=== PATIENT | female | born 1955 | race Caucasian/White ===

== ENCOUNTER → 2019-06-13 08:36 | Outpatient (CLI) | payer MEDICAID, SELFPAY ==
--- NOTE | 2019-06-13 08:41 | US_ITS ---
STUDY: ABDOMINAL ULTRASOUND - RIGHT UPPER QUADRANT REASON FOR VISIT: Female, 64 years old ELEVATED LIVER ENZYMES HX LIVER LACERATION 1988 TECHNIQUE: Ultrasound evaluation of the right upper quadrant was performed with real-time and static marcus-scale imaging. TECHNICAL QUALITY: Adequate. COMPARISON: None. FINDINGS: Liver: The liver measures 16.2 cm. There is increased echogenicity consistent with fatty infiltration. The bile ducts are within normal limits. There is hepatic color flow. The direction of portal flow is hepatopetal. There is no demonstrated mass lesion. Gallbladder: Normal distended gallbladder. The gallbladder wall measures 2.2 mm. There is a negative sonographic Rodriguez''s sign. There is no pericholecystic fluid. There is evidence of a solitary nonshadowing stone along the dependent portion of the gallbladder. Common Bile Duct (C.B.D.): The common bile duct measures 2.3 mm. Pancreas: Normal size of the head, body and tail of the pancreas. There is normal echogenicity of the pancreas. There is no demonstrated pancreatic mass or cyst. Right Kidney: Normal size of the right kidney. The right kidney measures 10.5 cm x 5.1 cm x 4.5 cm. Normal renal cortex. The right cortex measures 1.2 cm. There is no demonstrated renal mass or cyst. There is no right hydronephrosis. US/Liver IMPRESSION: Fatty infiltration of the liver. Solitary nonshadowing stone in the gallbladder. Electronically Signed: Rogerio Rueda, at 15:48 EDT , Service support ,
== END ==
DX: R94.5 Abnormal results of liver function studies (principal)
CPT/HCPCS: 76705

== ENCOUNTER → 2020-06-05 17:13 | Outpatient (CLI) | payer MEDICAID, SELFPAY ==
[2020-06-05 17:43] LABS: Absolute Lymphocyte Count 1.91 X10^3/uL (0.83-4.51); Absolute Neutrophil Count 5.3 X10^3/uL (2.0-7.7); Basophil# 0.07 X10^3/uL; Basophil% 0.9 % (0-1); Eosinophil# 0.12 X10^3/uL; Eosinophils% 1.5 % (0-5); Hematocrit 47.9 % (37-47); Hemoglobin 14.7 g/dL (12.0-15.0); Lymphocyte # 1.91 X10^3/ul (4.0); Lymphocyte % 24.1 % (19-41); Mean Corp Hgb Conc 30.7 g/dL (32-36); Mean Corpuscular Hgb 30.2 pg (27.0-32.0); Mean Corpuscular Volume 98.4 fL (81-99); Mean Platelet Vol. 10.2 fl (6.2-12.0); Monocyte# 0.53 X10^3/uL; Monocyte% 6.7 % (0-10); NRBC Flagged by Analyzer 0 % (0-5); Neutrophil # 5.29 X10^3/uL (2.7-7.7); Neutrophil % 66.5 % (47-70); Platelet Count 215 K/mm3 (150-450); RBC Distribution Width CV 13.1 % (11.6-14.6); RBC Distribution Width SD 48.1 fl (35.1-43.9); Red Blood Count 4.87 M/mm3 (4.2-5.4); White Blood Count 7.9 K/mm3 (4.4-11.0)
[2020-06-05 18:53] LABS: AST(SGOT) 19 U/L (15-37); Alanine Aminotransfer ALT/SGPT 31 U/L (13-56); Albumin, Serum 4.3 g/dL (3.2-5.0); Alkaline Phosphatase 107 U/L (45-117); Anion Gap 5 (5-15); BUN 13 mg/dL (7-18); BUN/Creat Ratio 17.1 RATIO (10-20); Calcium,Total 9.6 mg/dL (8.5-10.1); Chloride 103 mmol/L (98-107); Cholesterol 282 mg/dL (200); Creatinine, Serum 0.76 mg/dL (0.55-1.02); EST Glomerular Filtration Rate 82 mL/min (>60); Est Glom Filt Rate - Afr Amer 99 mL/min (>60); Globulin 4.5 g/dL (2.2-4.2); Glucose 83 mg/dL (74-106); High Density Lipoprotein 74 mg/dL; Potassium 3.5 mmol/L (3.5-5.1); Protein, Total 8.8 g/dL (6.4-8.2); Sodium Level 136 mmol/L (136-145); T4 Free Direct 1.33 ng/dL (0.76-1.46); Thyroid Stim Hormone (TSH) 0.94 uIU/mL (0.358-3.74); Triglycerides 81 mg/dL; Very Low Density Lipoprotein 16 mg/dL (5-40)
== END ==
PROVIDERS: Referring Provider Nurse Practitioner Adult Health; Visit Provider Nurse Practitioner Adult Health
DX: E03.9 Hypothyroidism, unspecified (principal); G47.00 Insomnia, unspecified
CPT/HCPCS: 36415; 80053; 80061; 84439; 84443; 85025

== ENCOUNTER 2021-07-09 11:22 | Outpatient (CLI) | payer MEDICARE, MEDICAID, SELFPAY ==
[2021-07-09 14:31] LABS: Cholesterol 226 mg/dL (200); High Density Lipoprotein 56 mg/dL; Thyroid Stim Hormone (TSH) 1.44 uIU/mL (0.358-3.74); Triglycerides 83 mg/dL; Very Low Density Lipoprotein 17 mg/dL (5-40)
== END 2021-07-09 23:59 | disposition home or self-care (01) ==
PROVIDERS: Referring Provider Family Medicine; Visit Provider Family Medicine
DX: I10 Essential (primary) hypertension (principal); E78.2 Mixed hyperlipidemia; E03.9 Hypothyroidism, unspecified
CPT/HCPCS: 36415; 80061; 84443

== ENCOUNTER 2024-11-04 11:59 | Emergency (ER) | payer MEDICARE, SELFPAY ==
[2024-11-04] VITALS (7 sets, daily range): BP systolic 161–186; BP diastolic 101–138; PULSE 84–130; RESP 17–24; TEMP 35.5–36.7; O2SAT 96–100; BMI 26.4
[2024-11-04] MEDS: Lorazepam 2 MG/ML WCH Syringe IV (12:01)
--- NOTE | 2024-11-04 12:06 | EKG12_ITS ---
Test Reason : SEIZURE/STROKE TEAM Blood Pressure : */* mmHG Vent. Rate : 106 BPM Atrial Rate : 106 BPM P-R Int : 178 ms QRS Dur : 74 ms QT Int : 344 ms P-R-T Axes : 53 22 27 degrees QTcB Int : 456 ms Sinus tachycardia Possible Lateral infarct , age undetermined Abnormal ECG Confirmed by ERIC WATSON MD ([id number]), associate entertainment editor LINK CABALLERO ([id number]) on 11/06/2024 7:34:29 AM Referred By: Confirmed By: ERIC WATSON MD
--- NOTE | 2024-11-04 12:06 | EKG12_ITS ---
Test Reason : SEIZURE/STROKE TEAM Blood Pressure : */* mmHG Vent. Rate : 106 BPM Atrial Rate : 106 BPM P-R Int : 178 ms QRS Dur : 74 ms QT Int : 344 ms P-R-T Axes : 53 22 27 degrees QTcB Int : 456 ms Sinus tachycardia Possible Lateral infarct , age undetermined Abnormal ECG Confirmed by ERIC WATSON MD ([id number]), film and video editor LINK CABALLERO ([id number]) on 11/06/2024 7:34:29 AM Referred By: Confirmed By: ERIC WATSON MD
--- NOTE | 2024-11-04 12:07 | RAD_ITS ---
PROCEDURE: CHEST 1 VIEW 11/04/2024 REASON FOR EXAM: NEURO DEFICIT, ACUTE, STROKE SUSPECTED TECHNIQUE: Frontal view of the chest. COMPARISON: None FINDINGS: Hardware: EKG leads are seen. Heart: The heart size is normal. Lungs: The lungs are clear. Bones: The bones are unremarkable. RAD/Chest 1 View IMPRESSION: No acute abnormality. Reading Location: [id number]
--- NOTE | 2024-11-04 12:07 | CT_ITS ---
PROCEDURE: STROKE CTA HEAD AND NECK W/CON 11/04/2024 REASON FOR EXAM: NEURO DEFICIT, ACUTE, STROKE SUSPECTED TECHNIQUE: STROKE CTA HEAD AND NECK W/CON Multiplanar Sagittal and Coronal images were obtained. 3D post processing was performed CONTRAST: Isovue 370 VOLUME: 100 mL, 40 cc saline One or more dose reduction techniques were used (e.g., Automated exposure control, adjustment of the mA and/or kV according to patient size, use of iterative reconstruction technique). RADIATION DOSE SUMMARY: CTDlvol: 37 mGy DLP: 688 mGycm COMPARISON: Head CT of the same day FINDINGS: Aortic Arch: Normal size and branching pattern. Mild atherosclerotic plaque. Brachiocephalic and Subclavians: Unremarkable RIGHT Carotid: Right CCA: Unremarkable. Right ICA: Mild mural plaque at the bifurcation Maximum stenosis (NASCET): 0 % Right ECA: Unremarkable. LEFT Carotid: Left CCA: Unremarkable. Left ICA: Minimal mural plaque posterolaterally at the bifurcation. Maximum stenosis (NASCET): 0 % Left ECA: Unremarkable. Vertebrals: Codominant. Arise from the subclavians. Both vertebrals form the basilar. However, they are rather tortuous in the lower neck. RIGHT Vertebral: Unremarkable. LEFT Vertebral: Unremarkable. Anatomy: Posterior communicating arteries are present bilaterally. Aneurysm or avm: No intracranial aneurysms or large vascular malformations are identified. Anterior cerebral arteries: Unremarkable. Middle cerebral arteries: Unremarkable. Basilar artery: Unremarkable. Posterior cerebral arteries: Unremarkable. Other major branches of the posterior circulation: Unremarkable. Major venous structures: Unremarkable. Other findings: Neck: No lymphadenopathy. Lungs: Lung apices are clear. Bones: Bones are unremarkable. CT/STROKE CTA Head AND Neck W/Con IMPRESSION: 1. No large vessel occlusion seen. 2. No aneurysm or stenosis seen. Very mild atherosclerotic change at the chavarria tid bifurcations. No flow-limiting stenosis seen. Reading Location: [id number]
--- NOTE | 2024-11-04 12:07 | RAD_ITS ---
PROCEDURE: CHEST 1 VIEW 11/04/2024 REASON FOR EXAM: NEURO DEFICIT, ACUTE, STROKE SUSPECTED TECHNIQUE: Frontal view of the chest. COMPARISON: None FINDINGS: Hardware: EKG leads are seen. Heart: The heart size is normal. Lungs: The lungs are clear. Bones: The bones are unremarkable. RAD/Chest 1 View IMPRESSION: No acute abnormality. Reading Location: [id number]
--- NOTE | 2024-11-04 12:12 | CT_ITS ---
PROCEDURE: STROKE BRAIN/HEAD WITHOUT CONT 11/04/2024 REASON FOR EXAM: NEURO DEFICIT, ACUTE, STROKE SUSPECTED TECHNIQUE: STROKE BRAIN/HEAD WITHOUT CONT Coronal and Sagittal reconstruction series were provided. One or more dose reduction techniques were used (e.g., Automated exposure control, adjustment of the mA and/or kV according to patient size, use of iterative reconstruction technique. RADIATION DOSE SUMMARY: CTDlvol: 45 mGy DLP: 815 mGycm COMPARISON: None FINDINGS: Brain: There is no evidence of hemorrhage, acute ischemia or mass. No extra- axial fluid collection, midline shift or mass effect. Minimal low signal in the periventricular white matter CSF Spaces: Mild generalized cerebral atrophy Sinuses/Mastoids: Clear Bones: No fracture CT/STROKE Brain/Head without Cont IMPRESSION: 1. No evidence of acute ischemia. 2. Mild changes of chronic microvascular ischemia volume loss. The findings and impression of the report were called directly to Dr. Clyde romero at 12:26 PM. Reading Location: [id number]
--- NOTE | 2024-11-04 12:12 | CT_ITS ---
PROCEDURE: STROKE BRAIN/HEAD WITHOUT CONT 11/04/2024 REASON FOR EXAM: NEURO DEFICIT, ACUTE, STROKE SUSPECTED TECHNIQUE: STROKE BRAIN/HEAD WITHOUT CONT Coronal and Sagittal reconstruction series were provided. One or more dose reduction techniques were used (e.g., Automated exposure control, adjustment of the mA and/or kV according to patient size, use of iterative reconstruction technique. RADIATION DOSE SUMMARY: CTDlvol: 45 mGy DLP: 815 mGycm COMPARISON: None FINDINGS: Brain: There is no evidence of hemorrhage, acute ischemia or mass. No extra- axial fluid collection, midline shift or mass effect. Minimal low signal in the periventricular white matter CSF Spaces: Mild generalized cerebral atrophy Sinuses/Mastoids: Clear Bones: No fracture CT/STROKE Brain/Head without Cont IMPRESSION: 1. No evidence of acute ischemia. 2. Mild changes of chronic microvascular ischemia volume loss. The findings and impression of the report were called directly to Dr. Clyde romero at 12:26 PM. Reading Location: [id number]
[2024-11-04 12:21] LABS: Hematocrit 45.2 % (37-47); Hemoglobin 14.7 g/dL (12.0-15.0); Immature Granulocytes Count 0.090 X10^3/uL (0.0-0.0); Mean Corp Hgb Conc 32.5 g/dL (32-36); Mean Corpuscular Volume 103.0 fL (81-99); Mean Platelet Vol. 10.7 fl (6.2-12.0); NRBC Flagged by Analyzer 0 % (0-5); POSITIVE COUNT YES; Platelet Count 164 K/mm3 (150-450); RBC Distribution Width CV 14.7 % (11.6-14.6); RBC Distribution Width SD 57.0 fl (35.1-43.9); Red Blood Count 4.39 M/mm3 (4.2-5.4); White Blood Count 12.4 K/mm3 (4.4-11.0)
[2024-11-04 12:33] LABS: Differential Indicated SCAN CRITERIA MET
[2024-11-04 12:37] LABS: Prothrombin Time (Protime)PT. 12.8 SECONDS (11.7-14.9)
[2024-11-04 12:38] LABS: Partial Thromboplast Time 23.6 Seconds (24.1-36.2)
[2024-11-04] MEDS: levETIRAcetam IV 1,000 MG/100 ML BAG 400 MG IV ×2 (12:46→13:00)
[2024-11-04] MEDS: 0.9% Normal Saline (1000mL) 1,000 ML 999 ML IV (12:46)
[2024-11-04 12:58] LABS: AST(SGOT) 53 U/L (<=31); Alanine Aminotransfer ALT/SGPT 51 U/L (<=34); Albumin, Serum 4.6 g/dL (3.4-4.8); Alkaline Phosphatase 143 U/L (35-104); Anion Gap 22 (5-15); BUN 12 mg/dL (4-19); BUN/Creat Ratio 18.0 RATIO (10-20); Calcium,Total 9.3 mg/dL (7.6-11.0); Carbon Dioxide 19.5 mmol/L (21.0-32.0); Chloride 93 mmol/L (98-108); Estimated Creatinine Clearance 69.30 ml/min (50-250); Globulin 3.6 g/dL (2.2-4.2); Glucose 169 mg/dL (70-99); Magnesium 1.8 mg/dL (1.5-2.2); Potassium 3.8 mmol/L (3.3-5.1); Troponin T High Sensitivity < 6 ng/L (<=14)
[2024-11-04 13:14] LABS: Ammonia 29.9 umol/L (11-51)
[2024-11-04 13:31] LABS: Base Excess 1 mmol/L (-2 to +2); PO2 66 mmHG (75-100); SITE R Brach; SO2 93 % (95-99)
[2024-11-04 13:42] LABS: Mucous, Urine 0 SEEN /hpf (<or=2+)
[2024-11-04 13:48] LABS: Color, Urine Yellow (Yellow); Glucose, Dipstick 100 mg/dl (Normal); Ketone-Dipstick 5 mg/dl (Negative); Leukocyte Esterase-Dipstick Negative /ul (Negative); Nitrite-Dipstick Negative (Negative); Occult Blood-Urine 25 /ul (Negative); Protein-Dipstick 100 mg/dl (Negative); Specific Gravity, Urine 1.015 (1.002-1.030); Urine Bilirubin Dipstick Negative (Negative)
[2024-11-04 13:59] LABS: Squamous Epithelial Cells - UA 0-5 SEEN /hpf (5-10)
[2024-11-04 14:01] LABS: Red Blood Cells-Urine 0-5 SEEN /hpf (0-5)
[2024-11-04] MEDS: 0.9% Normal Saline (1000mL) 1,000 ML 1000 ML IV (14:32)
--- NOTE | 2024-11-04 15:00 | EDS_ITS ---
HPI History of Present Illness Chief Complaint: Seizure Narrative Narrative: Chief complaint and HPI: Seizure. History taken by medical record and . 69-year-old female with past medical history of alcoholism presents for evaluation of seizure. states that the patient's last alcoholic beverage was yesterday evening. States she mostly drinks wine. States they were driving in the car and at 11:35 AM she began having confusion and right arm shaking. On presentation, patient is actively seizing. It quickly resolved however she had a recurrent seizure in which she resolved with 2 mg IV Ativan. However she has left sided gaze and right-sided neglect therefore she was made a stroke alert. Taken immediately to CT. not on blood thinners. states that the patient was at her normal state of health prior to the seizure. She has not been complaining of anything such as URI symptoms, fevers, shortness of breath, chest pain. On chart review, patient has a history of hypothyroidism and HTN. Review of systems: See HPI Medications: As listed on the chart Allergies: As listed on the chart PFSH: Per chart Vital signs: As listed on the chart. Reviewed. Physical exam: Gen: Originally unresponsive and seizing afterward alert and mumbling Head: Normocephalic, atraumatic Eyes: No sclera icterus, conjunctiva clear, PERRL, left-sided gaze will not cross midline, no nystagmus ENT: Dry mucous membranes, will not follow commands to assess for facial asym metry but no obvious asymmetry Neck: Trachea midline, No JVD, rotates her head to the left-will not rotate to the right CV: RRR, no murmurs, no peripheral edema Resp: Lungs CTA BL, no w/r/c GI: Abd soft, non-distended, does not appear tender, no r/r/g Musc: Moves her left upper and lower extremity-will occasionally follow commands with her left upper and left lower extremity such as wiggling toes and squeezing right hand, will not move or perform the commands on the right Skin: Warm, dry, intact Neuro: Alert, mumbling, Psych: Cooperative, appropriate mood and affect PFS PFS Allergy/AdvReac Type Severity Reaction Status Date / Time No Known Allergies Allergy Verified 11/04/24 12:01 Social History Smoking Status: Never smoker EXAM Physical Exam Const Vital Signs: 11/04/24 12:00 11/04/24 12:29 11/04/24 12:36 Temperature 96 F L Temperature Source Temporal Pulse Rate 130 H 109 H Respiratory Rate 20 H 22 H Blood Pressure 178/115 H Blood Pressure Mean 136 Pulse Ox 99 100 Oxygen Delivery Method Room Air Room Air Non-Rebreather Oxygen Flow Rate (L/min) 15 11/04/24 13:06 11/04/24 13:30 11/04/24 14:30 Temperature Temperature Source Pulse Rate 105 H 88 Respiratory Rate 24 H 17 Blood Pressure 186/103 H 161/138 H 179/101 H Blood Pressure Mean 130 145 127 Pulse Ox 98 96 Oxygen Delivery Method Room Air Room Air Oxygen Flow Rate (L/min) 11/04/24 15:07 11/04/24 15:08 Temperature 98.1 F Temperature Source Pulse Rate 84 86 Respiratory Rate 20 H 21 H Blood Pressure 181/108 H 181/108 H Blood Pressure Mean 132 132 Pulse Ox 97 97 Oxygen Delivery Method Oxygen Flow Rate (L/min) MDM MDM MDM Narrative Medical decision making narrative: 69-year-old female with past medical history of alcoholism, HTN, hypothyroidism presents for evaluation of seizure. Patient's last alcoholic drink was yesterday evening. States they were driving in the car and at 11:35 AM she began having confusion and right arm shaking. On presentation, patient was actively seizing. It quickly resolved however had recurrent seizure in which she resolved with 2 mg IV Ativan. Was alert afterwards. Mumbling. Intermittently following commands on the left. Left-sided gaze with right-sided weakness. Patient was made a stroke alert and taken immediately to CT. NIH was difficult to fully obtain given the limited cooperation from patient. Not on blood thinners. Differential diagnosis includes but is not limited to seizure, postictal phase, Harshad's paralysis, CVA, electrolyte abnormality, alcohol withdrawal, CHAITANYA, substance intoxication. Glucose 154. CT head with chronic microvascular ischemia but no acute pathology. Personally spoke with the radiologist over the phone. CTA head and neck without LVO or aneurysm. Very mild atherosclerotic changes at the carotid bifurcations. Patient was evaluated by teleneurology. While being examined by teleneurology, patient was found to be in partial seizure. On their exam she had left-sided nystagmus with left- sided arm shaking. Previous seizures were right arm shaking. Concern was for status epilepticus with partial complex seizure. Less likely CVA however cannot fully rule out. Patient not a TNK candidate due to current seizure and not clear picture. Patient was already receiving no 1 gram Keppra load. Re commendation was to add another 1 g Keppra for a 2 g load and another 2 mg IV Ativan and reassess in 15 minutes. If patient clinical picture did not change, plan would be for intubation with propofol to straight treat for status epilepticus. EKG was personally reviewed and interpreted by mo, ED physician, showed sinus tachycardia, rate 106. Nonspecific changes. CBC with mild leukocytosis of 12.4. No anemia. Platelets unremarkable. Coagulation panel unremarkable. Lactic acid 7.8. This is not uncommon for seizure as well as patient is probably likely chronically dehydrated from her alcoholism. Low suspicion for infection. VBG was ordered without acidosis. CMP consistent with dehydration without CHAITANYA. Patient has an anion gap of 22. Suspect this is likely secondary to alcoholic ketosis/dehydration. Another NS bolus ordered. Patient has mild transaminitis with an AST of 53 and an ALT of 51. Patient's abdominal exam is unremarkable. Troponin unremarkable x 2. Ammonia level unremarkable. TSH elevated at 5.490. Patient has history of hypothyroidism. Free T4 added. UA positive for ketones. Negative for infection. UA negative for UTI. Chest x-ray was personally viewed interpreted by mo, ED physician. No pneumonia, effusion, cardiomegaly, pneumothorax. Radiology in agreement. On reevaluation of the patient, she is alert. She is oriented to self only. She is answering questions periodically. She no longer has a left-sided gaze although she prefers to have her head turned to the left. She will cross midline. However she still has right upper and lower extremity weakness. She will wiggle her toes on the right and slightly squeeze my hand. Left patient's symptoms may be secondary to a Harshad's paralysis although cannot rule out CVA fully. Teleneurology was reconsulted to reevaluate the patient. Agree that the seizures have resolved. Suspect symptoms are likely secondary to seizure but agrees cannot fully rule out CVA without MRI of the brain. Discussion was had between teleneurology and patient's in about TNK. Everyone at re-agreed the patient is not a TNK candidate. Recommend patient have continuous EEG and neurology evaluation. We do not have that here at this hospital. Recommended ED to ED transfer. confirmed understanding. Transfer line contacted and patient accepted ED to ED. Plan is for repeat lactic acid after 2 L of fluid. Free T4 still pending. Alcohol level pending. She has remained hypertensive here in the emergency department. IV labetalol ordered Which patient received just prior to transfer. She was on seizure and CIWA precautions. Impression: 1. Seizure 2. Right-sided weakness-Harshad's paralysis versus CVA 3. Lactic acidosis, multifactorial including history of alcoholism, dehydrat ion, seizure activity 4. Hypothyroidism Lab Data Labs: Laboratory Results - last 24 hr 11/04/24 11/04/24 11/04/24 12:10 12:15 12:24 WBC 12.4 H RBC 4.39 Hgb 14.7 Hct 45.2 MCV 103.0 H MCH 33.5 H MCHC 32.5 RDW Std Deviation 57.0 H RDW Coeff of Soheila 14.7 H Plt Count 164 MPV 10.7 Immature Gran % (Auto) 0.700 Neut % (Auto) 69.7 Lymph % (Auto) 21.7 Thayer % (Auto) 6.6 Eos % (Auto) 0.3 Baso % (Auto) 1.0 Absolute Neuts (auto) 8.7 H Absolute Lymphs (auto) 2.70 Nucleated RBC % 0 Platelet Estimate ADEQUATE PT 12.8 INR 1.0 APTT 23.6 L Sodium 134 Potassium 3.8 Chloride 93 L Carbon Dioxide 19.5 L Anion Gap 22 H BUN 12 Creatinine 0.68 L Estim Creat Clear Calc 69.30 Est GFR (MDRD) Non-Af 95 BUN/Creatinine Ratio 18.0 Glucose 169 H Lactic Acid 7.8 H* Calcium 9.3 Magnesium 1.8 Total Bilirubin 0.41 AST 53 H ALT 51 H Alkaline Phosphatase 143 H Ammonia Troponin T High Sens < 6 Total Protein 8.2 Albumin 4.6 Globulin 3.6 Albumin/Globulin Ratio 1.3 TSH 5.490 H Urine Color Urine Clarity Urine pH Ur Specific [place] Urine Protein Urine Glucose (UA) Urine Ketones Urine Occult Blood Urine Nitrite Urine Bilirubin Urine Urobilinogen Ur Leukocyte Esterase Urine RBC Urine WBC Ur Squamous Epith Cells Urine Bacteria Urine Mucus POC Glucose 154 H 11/04/24 11/04/24 12:25 13:35 WBC RBC Hgb Hct MCV MCH MCHC RDW Std Deviation RDW Coeff of Soheila Plt Count MPV Immature Gran % (Auto) Neut % (Auto) Lymph % (Auto) Thayer % (Auto) Eos % (Auto) Baso % (Auto) Absolute Neuts (auto) Absolute Lymphs (auto) Nucleated RBC % Platelet Estimate PT INR APTT Sodium Potassium Chloride Carbon Dioxide Anion Gap BUN Creatinine Estim Creat Clear Calc Est GFR (MDRD) Non-Af BUN/Creatinine Ratio Glucose Lactic Acid Calcium Magnesium Total Bilirubin AST ALT Alkaline Phosphatase Ammonia 29.9 Troponin T High Sens Total Protein Albumin Globulin Albumin/Globulin Ratio TSH Urine Color Yellow Urine Clarity Clear Urine pH 8.0 Ur Specific [place] 1.015 Urine Protein 100 H Urine Glucose (UA) 100 H Urine Ketones 5 H Urine Occult Blood 25 H Urine Nitrite Negative Urine Bilirubin Negative Urine Urobilinogen Normal Ur Leukocyte Esterase Negative Urine RBC 0-5 SEEN Urine WBC 0 SEEN Ur Squamous Epith Cells 0-5 SEEN Urine Bacteria 0 SEEN Urine Mucus 0 SEEN POC Glucose ABG Data ABG results: ABG 11/04/24 13:28 Specimen Type ART Sample Site R Brach pH 7.43 Bicarbonate Actual 25.1 Total CO2 26 Base Excess 1 O2 Saturation 93 L ABG pCO2 37.8 ABG pO2 66 L O2 Delivery Device Room Air Vent Mode Not entered Radiography Diagnostic Testing: Clinical Impression(s) from Imaging Studies Chest X-Ray 11/04/24 12:07 IMPRESSION: No acute abnormality. Reading Location: [facility] Head/Neck CTA 11/04/24 12:07 IMPRESSION: 1. No large vessel occlusion seen. 2. No aneurysm or stenosis seen. Very mild atherosclerotic change at the carotid bifurcations. No flow-limiting stenosis seen. Reading Location: [facility] Brain CT 11/04/24 12:12 IMPRESSION: 1. No evidence of acute ischemia. 2. Mild changes of chronic microvascular ischemia volume loss. The findings and impression of the report were called directly to Dr. Nimco Osborn at 12:26 PM. Reading Location: [facility] Discharge Plan Triage Chief Complaint: Seizure ED Provider: Mitchell Agee Dx/Rx/DC Orders Primary Care Provider: Care Physician,No Primary Referrals: Care Physician,No Primary [Primary Care Provider] - Print Language: Sami
--- NOTE | 2024-11-04 15:03 | CHAPLAIN ---
Type of Pastoral Visit ___ Initial Visit ___ Follow-up Visit ___ On-call Visit ___ General Patient Visit ___ Spiritual Assessment ___ Family Conference ___ Bereavement _x__ Rapid Response ___ Code Blue ___ Other (describe below) Pastoral Care Referral From ___ Patient ___ Family ___ Nurse ___ Physician ___ Wrapping Machine Helper ___ Lidding Machine Operator _x__ Other (describe below) Sacrament/Intervention ___ Active listening ___ Anointing ___ Jehovah'S Witness ___ Bereavement ___ Communion ___ Ayse exploration ___ ___ Life review _x__ Prayer ___ Reconciliation ___ Sacrament of Sick _x__ Supportive presence ___ Wedding ___ Other (describe below) Pastoral Comments responded to stroke alert; patient was in the CT for evaluation; met with spouse who also had a phone call and registration; spouse said just say a prayer for my , that's all; silent prayer in the hallway was given
--- NOTE | 2024-11-04 15:03 | CHAPLAIN ---
Type of Pastoral Visit ___ Initial Visit ___ Follow-up Visit ___ On-call Visit ___ General Patient Visit ___ Spiritual Assessment ___ Family Conference ___ Bereavement _x__ Rapid Response ___ Code Blue ___ Other (describe below) Pastoral Care Referral From ___ Patient ___ Family ___ Nurse ___ Physician ___ History Instructor ___ Bag Machine Tender _x__ Other (describe below) Sacrament/Intervention ___ Active listening ___ Anointing ___ Denominational ___ Bereavement ___ Communion ___ Ayse exploration ___ ___ Life review _x__ Prayer ___ Reconciliation ___ Sacrament of Sick _x__ Supportive presence ___ Wedding ___ Other (describe below) Pastoral Comments responded to stroke alert; patient was in the CT for evaluation; met with spouse who also had a phone call and registration; spouse said just say a prayer for my , that's all; silent prayer in the hallway was given
[2024-11-04 15:29] LABS: Troponin T High Sens 2 HR 14 ng/L (<=14)
[2024-11-04 15:41] LABS: Barbiturate Urine NEGATIVE (< 200 ng/mL); Benzodiazepine Urine NEGATIVE (< 200 ng/mL); PCP Urine NEGATIVE (< 25 ng/mL); THC Urine NEGATIVE (< 50 ng/mL)
[2024-11-04 16:07] LABS: Alcohol, Blood (Medical)-Serum < 10.1 mg/dL (<=10.0)
[2024-11-04 16:25] LABS: Reflex Lactate? Y
== END 2024-11-04 15:52 | disposition short-term general hospital (02) ==
PROVIDERS: Emergency Provider Surgery; Visit Provider Surgery
DX: R56.9 Unspecified convulsions (principal); E87.20 Acidosis, unspecified; R53.1 Weakness; E03.9 Hypothyroidism, unspecified; I10 Essential (primary) hypertension
CPT/HCPCS: 36600; 70450; 70496; 70498; 71045; 80053; 80307; 81001; 82077; 82140; 82803; 82962; 83605; 83735; 84443; 84484; 85025; 85610; 85730; 93005; 96361; 96365; 96375; 96376; 99285; Q9967; A4216